=== PATIENT | female | born 1995 | race Caucasian/White ===

== ENCOUNTER 2020-05-14 10:39 | Outpatient (CLI) | payer OTHER | END 2020-05-14 10:41 | disposition home or self-care (01) | LOC: EDBD 10:39 → SONOGRAMA 10:39 → RX STUDY 12:00 | PROVIDERS: ATTEND Obstetrics & Gynecology | DX: C54.1 Malignant neoplasm of endometrium (principal); C79.89 Secondary malignant neoplasm of other specified sites ==